=== PATIENT | male | born 1950 | race Caucasian/White ===

== ENCOUNTER 2021-07-27 09:41 | Day surgery (SDC) | payer OTHER ==
[~2021-07-27] VITALS: Ht 167.6 cm; Wt 63.5 kg
[2021-07-27] MEDS ORDERED: diphenhydrAMINE 50 MG/ML VIAL ONE (10:45)
[2021-07-27] MEDS ORDERED: fentaNYL citrate 0.05 MG/ML VIAL ONE (10:45)
[2021-07-27] MEDS ORDERED: MIDAZOLAM 2 MG/2 ML VIAL ONE (10:46)
[2021-07-27] MEDS ORDERED: LIDOCAINE 2% 100 MG/5 ML UJET TP ONE (10:46)
[2021-07-27] MEDS ORDERED: MIDAZOLAM 2 MG/2 ML VIAL IVP ONE (12:05)
[2021-07-27] MEDS ORDERED: fentaNYL citrate 0.05 MG/ML VIAL IVP ONE (12:05)
== END 2021-07-27 11:54 | disposition home or self-care (01) ==
LOC: MFCC 09:41 → MDS 09:41
PROVIDERS: ATTEND Internal Medicine Gastroenterology
DX: Z12.11 Encounter for screening for malignant neoplasm of colon (principal); K46.9 Unspecified abdominal hernia without obstruction or gangrene; Z90.49 Acquired absence of other specified parts of digestive tract; Z20.822 Contact with and (suspected) exposure to COVID-19; Z79.899 Other long term (current) drug therapy
CPT/HCPCS: G0121; J2250; J3010; U0003; J1200